=== PATIENT | female | born 1945 ===

== ENCOUNTER 2019-08-08 18:19 | Inpatient (IN) | payer MEDICAID, OTHER ==
[~2019-08-08] VITALS: Ht 154.9 cm; Wt 51.7 kg
[2019-08-08] MEDS ORDERED: METF-446 PO (18:31)
[2019-08-08] MEDS ORDERED: LISI2.5T2 PO (18:31)
[2019-08-08 19:32] LABS: BASOPHILS % (AUTO) 0.4 % (0.0-2.0); EOSINOPHILS % (AUTO) 0.4 % (1.0-6.0); HEMATOCRIT 31.6 % (36-46); HEMOGLOBIN 10.3 g/dL (12.0-16.0); LYMPHOCYTES # (AUTO) 0.8 K/uL (1.0-4.8); LYMPHOCYTES % (AUTO) 6.2 % (22.0-44.0); MEAN CORPUSCULAR HEMOGLOBIN 31.7 pg (26.0-34.0); MEAN CORPUSCULAR HGB CONC 32.7 G/dL (31.0-37.0); MEAN CORPUSCULAR VOLUME 97 fL (80-100); MONOCYTES # (AUTO) 0.9 K/uL (0.1-1.0); MONOCYTES % (AUTO) 7.2 % (2.0-9.0); NEUTROPHILS # (AUTO) 10.9 K/uL (1.8-7.7); PLATELET COUNT (AUTO) 358 K/uL (150-450); RED BLOOD CELL COUNT(AUTO) 3.26 MIL/uL (4.00-5.20); RED CELL DISTRIBUTION WIDTH 12.8 % (11.5-14.5)
[2019-08-08 19:33] LABS: NEUTROPHILS % (AUTO) 85.8 % (40.0-70.0)
[2019-08-08 19:44] LABS: PROTHROMBIN TIME 10.6 SEC (9.4-11.6)
[2019-08-08] MEDS ORDERED: MORPHINE SULFATE 4 MG/ML SYRINGE IVP PRN (19:45)
[2019-08-08] MEDS ORDERED: ONDANSETRON HCL 4 MG/2 ML VIAL IVP PRN (19:45)
[2019-08-08] MEDS ORDERED: ACETAMINOPHEN 325 MG TABLET PO PRN (19:45)
[2019-08-08] MEDS ORDERED: 0.9% SODIUM CHLORIDE 10 ML SYRINGE IVP PRN (19:45)
[2019-08-08 19:47] LABS: ALBUMIN 2.7 g/dL (3.4-5.0); BILIRUBIN,TOTAL 0.3 mg/dL (0.1-1.0); CALCIUM, TOTAL 8.3 mg/dL (8.8-10.5); CREATININE 1.51 mg/dL (0.60-1.30); POTASSIUM 5.8 mmol/L (3.5-5.1); TOTAL PROTEIN, SERUM 7.1 g/dL (6.4-8.2)
[2019-08-08] MEDS ORDERED: MORPHINE SULFATE 4 MG/ML SYRINGE IVP ONE (20:00)
[2019-08-08 23:15] VITALS: BP 153/73
[2019-08-09] MEDS ORDERED: PNEUMOCOCCAL VACCINE POLYVALENT 0.5 ML VIAL [PPSV23] IM ONE (01:30)
[2019-08-09] MEDS ORDERED: INFLUENZA VIRUS VACCINE QVS 2019-20 (3YR+)/PF 60 MCG/0.5 ML SYRINGE IM ONE (01:30)
[2019-08-09] MEDS ORDERED: DEXTROSE 50%-WATER 25 GM/50 ML SYRINGE IVP PRN (04:15)
[2019-08-09] MEDS ORDERED: 0.9% SODIUM CHLORIDE 10 ML SYRINGE IVP PRN (04:15)
[2019-08-09 05:44] VITALS: BP 126/58
[2019-08-09] MEDS: ONDANSETRON HCL 4 MG/2 ML VIAL IVP PRN ×2 (05:54→20:44)
[2019-08-09] MEDS ORDERED: MORPHINE SULFATE 2 MG/ML SYRINGE IVP PRN (06:30)
[2019-08-09] MEDS: DEXTROSE 5%-0.45% SODIUM CHL 1,000 ML IV SCH ×2 (06:35→22:35)
[2019-08-09 06:51] LABS: GLUCOMETER DEV NAME(LOC) 6N.2; GLUCOSE,POINT OF CARE 274 MG/DL (70-110)
[2019-08-09 06:52] LABS: GLUCOMETER DEV NAME(LOC) 6N.2; GLUCOSE,POINT OF CARE 160 MG/DL (70-110)
[2019-08-09 08:37] VITALS: BP 129/54
[2019-08-09] MEDS: DOCUSATE SODIUM 100 MG CAPSULE PO SCH ×2 (08:45→20:44)
[2019-08-09 09:13] LABS: BASOPHILS % (AUTO) 0.2 % (0.0-2.0); EOSINOPHILS % (AUTO) 0.8 % (1.0-6.0); HEMATOCRIT 29.9 % (36-46); HEMOGLOBIN 10.1 g/dL (12.0-16.0); LYMPHOCYTES # (AUTO) 1.4 K/uL (1.0-4.8); MEAN CORPUSCULAR HEMOGLOBIN 32.4 pg (26.0-34.0); MEAN CORPUSCULAR HGB CONC 33.8 G/dL (31.0-37.0); MEAN CORPUSCULAR VOLUME 96 fL (80-100); MONOCYTES # (AUTO) 0.6 K/uL (0.1-1.0); MONOCYTES % (AUTO) 6.5 % (2.0-9.0); NEUTROPHILS # (AUTO) 7.2 K/uL (1.8-7.7); NEUTROPHILS % (AUTO) 77.5 % (40.0-70.0); PLATELET COUNT (AUTO) 368 K/uL (150-450); RED BLOOD CELL COUNT(AUTO) 3.11 MIL/uL (4.00-5.20); RED CELL DISTRIBUTION WIDTH 12.7 % (11.5-14.5)
[2019-08-09 09:32] LABS: ALBUMIN 2.4 g/dL (3.4-5.0); BILIRUBIN,TOTAL 0.3 mg/dL (0.1-1.0); CREATININE 1.04 mg/dL (0.60-1.30); POTASSIUM 4.3 mmol/L (3.5-5.1); TOTAL PROTEIN, SERUM 6.4 g/dL (6.4-8.2)
[2019-08-09 11:31] VITALS: BP 140/57
[2019-08-09 12:21] LABS: GLUCOMETER DEV NAME(LOC) 6N.2; GLUCOSE,POINT OF CARE 122 MG/DL (70-110)
[2019-08-09] MEDS ORDERED: POVIDONE-IODINE 30 GM OINTMENT TP ONE (14:08)
[2019-08-09] MEDS ORDERED: BUPIVACAINE/EPI/PF 0.5% 30 ML VIAL ONE (14:08)
[2019-08-09] MEDS ORDERED: BUPIVACAINE LIPOSOME/PF 1.3%-13.3MG/ML SUSPENSION 20 ML VIAL INJ ONE (14:15)
[2019-08-09] MEDS ORDERED: RINGERS SOLUTION,LACTATED 1,000 ML IV ONE (14:28)
[2019-08-09] MEDS ORDERED: HYDROmorphone 2 MG/ML SYRINGE IVP PRN (15:30)
[2019-08-09] MEDS ORDERED: FentaNYL CITRATE-PF 100 MCG/2 ML VIAL IVP PRN (15:30)
[2019-08-09] MEDS ORDERED: MEPERIDINE-PF 25 MG/ML VIAL IVP PRN (15:30)
[2019-08-09] MEDS ORDERED: HYDROmorphone 2 MG/ML SYRINGE ONE (17:23)
[2019-08-09] MEDS ORDERED: MEPERIDINE-PF 25 MG/ML VIAL ONE (17:23)
[2019-08-09 18:22] VITALS: BP 154/73
[2019-08-09 18:44] LABS: GLUCOMETER DEV NAME(LOC) 6N.2; GLUCOSE,POINT OF CARE 131 MG/DL (70-110)
[2019-08-09 19:54] VITALS: BP 126/69
[2019-08-09] MEDS ORDERED: OXYGEN THERAPY IH SCH (20:00)
[2019-08-09] MEDS: OXYGEN THERAPY IH SCH (20:33)
[2019-08-09] MEDS: ACETAMINOPHEN 325 MG TABLET PO PRN (20:45)
[2019-08-09] MEDS: INSULIN LISPRO 100 UNITS/ML SQ PRN (20:51)
[2019-08-09 22:42] LABS: GLUCOMETER DEV NAME(LOC) 6N.2; GLUCOSE,POINT OF CARE 153 MG/DL (70-110)
[2019-08-10 00:28] VITALS: BP 101/45
[2019-08-10 05:02] VITALS: BP 131/59
[2019-08-10] MEDS ORDERED: FentaNYL CITRATE-PF 100 MCG/2 ML VIAL IVP ONE (05:45)
[2019-08-10] MEDS ORDERED: ONDANSETRON HCL 4 MG/2 ML VIAL IVP ONE (05:45)
[2019-08-10] MEDS ORDERED: SUCCINYLCHOLINE CHLORIDE 20 MG/ML 10 ML VIAL IVP ONE (05:45)
[2019-08-10] MEDS ORDERED: PROPOFOL 1% 20 ML VIAL IVP ONE (05:45)
[2019-08-10 06:30] LABS: GLUCOMETER DEV NAME(LOC) 6N.2; GLUCOSE,POINT OF CARE 94 MG/DL (70-110)
[2019-08-10 07:17] LABS: BASOPHILS % (AUTO) 0.1 % (0.0-2.0); EOSINOPHILS % (AUTO) 1.2 % (1.0-6.0); HEMOGLOBIN 9.8 g/dL (12.0-16.0); LYMPHOCYTES # (AUTO) 1.2 K/uL (1.0-4.8); LYMPHOCYTES % (AUTO) 12.7 % (22.0-44.0); MEAN CORPUSCULAR HEMOGLOBIN 31.5 pg (26.0-34.0); MEAN CORPUSCULAR HGB CONC 32.7 G/dL (31.0-37.0); MEAN CORPUSCULAR VOLUME 96 fL (80-100); MONOCYTES # (AUTO) 0.6 K/uL (0.1-1.0); MONOCYTES % (AUTO) 6.7 % (2.0-9.0); NEUTROPHILS # (AUTO) 7.5 K/uL (1.8-7.7); NEUTROPHILS % (AUTO) 79.3 % (40.0-70.0); PLATELET COUNT (AUTO) 307 K/uL (150-450); RED BLOOD CELL COUNT(AUTO) 3.11 MIL/uL (4.00-5.20); RED CELL DISTRIBUTION WIDTH 12.5 % (11.5-14.5)
[2019-08-10 07:33] LABS: CALCIUM, TOTAL 8.3 mg/dL (8.8-10.5); CREATININE 1.1 mg/dL (0.60-1.30); POTASSIUM 4.2 mmol/L (3.5-5.1)
[2019-08-10] MEDS: ENOXAPARIN SODIUM 40 MG/0.4 ML PF SYRINGE SQ SCH (08:18)
[2019-08-10] MEDS: DOCUSATE SODIUM 100 MG CAPSULE PO SCH ×2 (08:18→20:37)
[2019-08-10] MEDS: OxyCODONE HCL/ACETAMINOPHEN 5-325 MG TABLET PO PRN ×2 (08:21→20:37)
[2019-08-10 08:42] VITALS: BP 113/50
[2019-08-10 11:14] LABS: GLUCOMETER DEV NAME(LOC) 6N.2; GLUCOSE,POINT OF CARE 304 MG/DL (70-110)
[2019-08-10] MEDS: INSULIN LISPRO 100 UNITS/ML SQ PRN ×2 (11:20→17:41)
[2019-08-10 12:47] VITALS: BP 130/60
[2019-08-10] MEDS: DEXTROSE 5%-0.45% SODIUM CHL 1,000 ML IV SCH (15:50)
[2019-08-10 16:23] VITALS: BP 91/52
[2019-08-10] MEDS: OXYGEN THERAPY IH SCH (17:44)
[2019-08-10 20:35] VITALS: BP 112/53
[2019-08-10 23:03] LABS: GLUCOMETER DEV NAME(LOC) 6N.2; GLUCOSE,POINT OF CARE 120 MG/DL (70-110)
[2019-08-10 23:03] LABS: GLUCOMETER DEV NAME(LOC) 6N.2; GLUCOSE,POINT OF CARE 200 MG/DL (70-110)
[2019-08-11 00:02] VITALS: BP 110/54
[2019-08-11 04:00] VITALS: BP 120/52
[2019-08-11] MEDS: INSULIN LISPRO 100 UNITS/ML SQ PRN ×4 (05:57→21:17)
[2019-08-11 07:42] LABS: GLUCOMETER DEV NAME(LOC) 6N.2; GLUCOSE,POINT OF CARE 171 MG/DL (70-110)
[2019-08-11] MEDS: ENOXAPARIN SODIUM 40 MG/0.4 ML PF SYRINGE SQ SCH (08:33)
[2019-08-11] MEDS: DEXTROSE 5%-0.45% SODIUM CHL 1,000 ML IV SCH (08:33)
[2019-08-11] MEDS: DOCUSATE SODIUM 100 MG CAPSULE PO SCH ×2 (08:33→21:25)
[2019-08-11] MEDS: OXYGEN THERAPY IH SCH ×2 (08:34→21:23)
[2019-08-11 08:56] VITALS: BP 124/58
[2019-08-11] MEDS: OxyCODONE HCL/ACETAMINOPHEN 5-325 MG TABLET PO PRN ×2 (10:59→15:00)
[2019-08-11 11:29] VITALS: BP 126/56
[2019-08-11 12:36] LABS: GLUCOMETER DEV NAME(LOC) 6N.2; GLUCOSE,POINT OF CARE 225 MG/DL (70-110)
[2019-08-11 15:16] LABS: GLUCOMETER DEV NAME(LOC) 6N.2; GLUCOSE,POINT OF CARE 132 MG/DL (70-110)
[2019-08-11] MEDS: ONDANSETRON HCL 4 MG/2 ML VIAL IVP PRN ×2 (15:33→21:19)
[2019-08-11 16:00] VITALS: BP 109/51
[2019-08-11 17:58] LABS: GLUCOMETER DEV NAME(LOC) 6N.2; GLUCOSE,POINT OF CARE 206 MG/DL (70-110)
[2019-08-11 20:43] VITALS: BP 125/56
[2019-08-12] VITALS (7 sets, daily range): BP systolic 100–132; BP diastolic 47–60
[2019-08-12 02:45] LABS: GLUCOMETER DEV NAME(LOC) 6N.2; GLUCOSE,POINT OF CARE 212 MG/DL (70-110)
[2019-08-12] MEDS: DEXTROSE 5%-0.45% SODIUM CHL 1,000 ML IV SCH ×3 (06:13→23:33)
[2019-08-12] MEDS: INSULIN LISPRO 100 UNITS/ML SQ PRN ×4 (06:31→20:31)
[2019-08-12 07:58] LABS: GLUCOMETER DEV NAME(LOC) 6N.2; GLUCOSE,POINT OF CARE 196 MG/DL (70-110)
[2019-08-12] MEDS: OXYGEN THERAPY IH SCH (08:33)
[2019-08-12] MEDS: DOCUSATE SODIUM 100 MG CAPSULE PO SCH ×2 (08:34→19:55)
[2019-08-12] MEDS: ENOXAPARIN SODIUM 40 MG/0.4 ML PF SYRINGE SQ SCH (08:34)
[2019-08-12 19:34] LABS: GLUCOMETER DEV NAME(LOC) 6N.2; GLUCOSE,POINT OF CARE 216 MG/DL (70-110)
[2019-08-12 19:35] LABS: GLUCOMETER DEV NAME(LOC) 6N.2; GLUCOSE,POINT OF CARE 233 MG/DL (70-110)
[2019-08-12] MEDS: OxyCODONE HCL/ACETAMINOPHEN 5-325 MG TABLET PO PRN (22:01)
[2019-08-12 22:23] LABS: APPEARANCE,URINE TURBID (CLEAR); BILIRUBIN,URINE NEGATIVE (NEGATIVE); GLUCOSE, URINE (UA) NEGATIVE (NEGATIVE); KETONES,URINE NEGATIVE (NEGATIVE); LEUKOCYTE ESTERASE ,URINE LARGE (NEGATIVE); NITRATE,URINE NEGATIVE (NEGATIVE); OCCULT BLOOD,URINE SMALL (NEGATIVE); PROTEIN,URINE TRACE (NEGATIVE); UROBILINOGEN,URINE 0.2 mg/dL (<=1.0)
[2019-08-12 22:45] LABS: BACTERIA,URINE Many /HPF (None Seen); SQUAMOUS EPITHELIAL CELL,UR Many /LPF (None Seen); WBC,URINE 51-100 /HPF (0-5)
[2019-08-12 23:32] LABS: GLUCOMETER DEV NAME(LOC) 6N.2; GLUCOSE,POINT OF CARE 193 MG/DL (70-110)
[2019-08-13 05:06] VITALS: BP 126/71
[2019-08-13] MEDS ORDERED: RINGERS SOLUTION,LACTATED 1,000 ML IV ONE (05:15)
[2019-08-13 06:17] LABS: GLUCOMETER DEV NAME(LOC) 4E.2; GLUCOSE,POINT OF CARE 226 MG/DL (70-110)
[2019-08-13] MEDS ORDERED: LIDOCAINE/PF 1% 30 ML VIAL ONE (06:42)
[2019-08-13] MEDS ORDERED: BUPIVACAINE HCL/PF 0.5% 30 ML VIAL ONE (06:42)
[2019-08-13] MEDS: OXYGEN THERAPY IH SCH ×2 (08:00→08:58)
[2019-08-13 08:17] LABS: CALCIUM, TOTAL 7.7 mg/dL (8.8-10.5); CREATININE 1.24 mg/dL (0.60-1.30); POTASSIUM 4.7 mmol/L (3.5-5.1)
[2019-08-13 08:29] LABS: BASOPHILS % (AUTO) 0.3 % (0.0-2.0); EOSINOPHILS % (AUTO) 1.4 % (1.0-6.0); HEMATOCRIT 27.3 % (36-46); HEMOGLOBIN 9.2 g/dL (12.0-16.0); LYMPHOCYTES # (AUTO) 1.5 K/uL (1.0-4.8); LYMPHOCYTES % (AUTO) 16.6 % (22.0-44.0); MEAN CORPUSCULAR HEMOGLOBIN 32.2 pg (26.0-34.0); MEAN CORPUSCULAR HGB CONC 33.6 G/dL (31.0-37.0); MEAN CORPUSCULAR VOLUME 96 fL (80-100); MONOCYTES # (AUTO) 0.6 K/uL (0.1-1.0); MONOCYTES % (AUTO) 6.3 % (2.0-9.0); NEUTROPHILS # (AUTO) 6.8 K/uL (1.8-7.7); NEUTROPHILS % (AUTO) 75.4 % (40.0-70.0); PLATELET COUNT (AUTO) 434 K/uL (150-450); RED BLOOD CELL COUNT(AUTO) 2.85 MIL/uL (4.00-5.20); RED CELL DISTRIBUTION WIDTH 12.8 % (11.5-14.5)
[2019-08-13] MEDS ORDERED: ONDANSETRON HCL 4 MG/2 ML VIAL ONE (08:30)
[2019-08-13] MEDS: ONDANSETRON HCL 4 MG/2 ML VIAL IVP PRN ×2 (08:31→11:27)
[2019-08-13] MEDS: DOCUSATE SODIUM 100 MG CAPSULE PO SCH ×2 (08:57→20:21)
[2019-08-13] MEDS: ENOXAPARIN SODIUM 40 MG/0.4 ML PF SYRINGE SQ SCH (08:57)
[2019-08-13 09:01] VITALS: BP 136/64
[2019-08-13] MEDS: MetFORMIN HCL 500 MG TABLET PO SCH (09:10)
[2019-08-13 11:27] VITALS: BP 142/74
[2019-08-13] MEDS: MAGNESIUM HYDROXIDE SUSPENSION 30 ML UDCUP PO PRN (11:27)
[2019-08-13] MEDS: MULTIVITAMINS WITH MINERALS, THERAPEUTIC TABLET PO SCH (11:27)
[2019-08-13] MEDS: INSULIN LISPRO 100 UNITS/ML SQ PRN ×3 (11:29→20:29)
[2019-08-13] MEDS: CefTRIAXone 1 GM/DEXTROSE 50 ML IV SCH (11:31)
[2019-08-13] MEDS ORDERED: KETAMINE HCL 50 MG/ML 10 ML VIAL IVP ONE (12:00)
[2019-08-13] MEDS ORDERED: PROPOFOL 1% 20 ML VIAL IVP ONE (12:00)
[2019-08-13] MEDS ORDERED: FentaNYL CITRATE-PF 100 MCG/2 ML VIAL IVP ONE (12:00)
[2019-08-13] MEDS ORDERED: EPHEDrine SULFATE 50 MG/ML VIAL IM ONE (12:00)
[2019-08-13] MEDS ORDERED: 0.9% SODIUM CHLORIDE 10 ML VIAL IVP ONE (12:00)
[2019-08-13] MEDS ORDERED: SODIUM CHLORIDE 0.9% 500 ML IV ONE (12:08)
[2019-08-13 12:21] LABS: GLUCOMETER DEV NAME(LOC) 6N.2; GLUCOSE,POINT OF CARE 259 MG/DL (70-110)
[2019-08-13 15:15] VITALS: BP 133/72
[2019-08-13] MEDS: DEXTROSE 5%-0.45% SODIUM CHL 1,000 ML IV SCH (17:28)
[2019-08-13 19:48] VITALS: BP 108/50
[2019-08-13] MEDS: OxyCODONE HCL/ACETAMINOPHEN 5-325 MG TABLET PO PRN (20:21)
[2019-08-13 20:28] LABS: GLUCOMETER DEV NAME(LOC) 6N.2; GLUCOSE,POINT OF CARE 148 MG/DL (70-110)
[2019-08-13] MEDS ORDERED: BISACODYL 10 MG RECTAL RECTAL SUPPOSITORY PR PRN (22:15)
[2019-08-13 22:24] LABS: GLUCOMETER DEV NAME(LOC) 6N.2; GLUCOSE,POINT OF CARE 171 MG/DL (70-110)
[2019-08-13 23:36] VITALS: BP 110/54
[2019-08-14 04:12] VITALS: BP 120/57
[2019-08-14] MEDS: INSULIN LISPRO 100 UNITS/ML SQ PRN ×4 (05:56→21:45)
[2019-08-14 06:56] LABS: GLUCOMETER DEV NAME(LOC) 6N.2; GLUCOSE,POINT OF CARE 166 MG/DL (70-110)
[2019-08-14 08:06] VITALS: BP 131/66
[2019-08-14] MEDS: MULTIVITAMINS WITH MINERALS, THERAPEUTIC TABLET PO SCH (08:31)
[2019-08-14] MEDS: MetFORMIN HCL 500 MG TABLET PO SCH (08:31)
[2019-08-14] MEDS: ENOXAPARIN SODIUM 40 MG/0.4 ML PF SYRINGE SQ SCH (08:31)
[2019-08-14] MEDS: DOCUSATE SODIUM 100 MG CAPSULE PO SCH ×2 (08:31→21:09)
[2019-08-14 11:41] VITALS: BP 140/70
[2019-08-14] MEDS: CefTRIAXone 1 GM/DEXTROSE 50 ML IV SCH (12:36)
[2019-08-14 17:20] VITALS: BP 122/53
[2019-08-14] MEDS ORDERED: SODIUM CHLORIDE 0.9% 500 ML IV ONE (18:20)
[2019-08-14 19:59] VITALS: BP 106/56
[2019-08-14 20:04] LABS: GLUCOMETER DEV NAME(LOC) 6N.2; GLUCOSE,POINT OF CARE 226 MG/DL (70-110)
[2019-08-14 20:04] LABS: GLUCOMETER DEV NAME(LOC) 6N.2; GLUCOSE,POINT OF CARE 161 MG/DL (70-110)
[2019-08-14] MEDS: DEXTROSE 5%-0.45% SODIUM CHL 1,000 ML IV SCH (21:11)
[2019-08-14] MEDS: OxyCODONE HCL/ACETAMINOPHEN 5-325 MG TABLET PO PRN (21:12)
[2019-08-14 23:26] VITALS: BP 117/53
[2019-08-15] MEDS: ACETAMINOPHEN 325 MG TABLET PO PRN (00:08)
[2019-08-15 00:14] LABS: GLUCOMETER DEV NAME(LOC) 6N.2; GLUCOSE,POINT OF CARE 129 MG/DL (70-110)
[2019-08-15 04:23] VITALS: BP 108/53
[2019-08-15] MEDS: ONDANSETRON HCL 4 MG/2 ML VIAL IVP PRN (06:28)
[2019-08-15] MEDS: INSULIN LISPRO 100 UNITS/ML SQ PRN ×3 (06:31→21:38)
[2019-08-15 07:10] LABS: GLUCOMETER DEV NAME(LOC) 6N.2; GLUCOSE,POINT OF CARE 200 MG/DL (70-110)
[2019-08-15] MEDS: OxyCODONE HCL/ACETAMINOPHEN 5-325 MG TABLET PO PRN (08:42)
[2019-08-15] MEDS: MetFORMIN HCL 500 MG TABLET PO SCH (08:42)
[2019-08-15] MEDS: ENOXAPARIN SODIUM 40 MG/0.4 ML PF SYRINGE SQ SCH (08:42)
[2019-08-15] MEDS: DOCUSATE SODIUM 100 MG CAPSULE PO SCH ×2 (08:42→23:49)
[2019-08-15] MEDS: MULTIVITAMINS WITH MINERALS, THERAPEUTIC TABLET PO SCH (08:42)
[2019-08-15 08:50] VITALS: BP 135/58
[2019-08-15 11:29] VITALS: BP 134/59
[2019-08-15] MEDS: OXYGEN THERAPY IH SCH (12:00)
[2019-08-15 12:32] LABS: GLUCOMETER DEV NAME(LOC) 6N.2; GLUCOSE,POINT OF CARE 279 MG/DL (70-110)
[2019-08-15 12:48] LABS: BASOPHILS % (AUTO) 0.3 % (0.0-2.0); EOSINOPHILS % (AUTO) 1.4 % (1.0-6.0); HEMOGLOBIN 9.3 g/dL (12.0-16.0); LYMPHOCYTES # (AUTO) 1.5 K/uL (1.0-4.8); LYMPHOCYTES % (AUTO) 18.1 % (22.0-44.0); MEAN CORPUSCULAR HEMOGLOBIN 31.8 pg (26.0-34.0); MEAN CORPUSCULAR HGB CONC 33.1 G/dL (31.0-37.0); MEAN CORPUSCULAR VOLUME 96 fL (80-100); MONOCYTES # (AUTO) 0.5 K/uL (0.1-1.0); MONOCYTES % (AUTO) 6.1 % (2.0-9.0); NEUTROPHILS # (AUTO) 6.1 K/uL (1.8-7.7); NEUTROPHILS % (AUTO) 74.1 % (40.0-70.0); PLATELET COUNT (AUTO) 459 K/uL (150-450); RED BLOOD CELL COUNT(AUTO) 2.92 MIL/uL (4.00-5.20); RED CELL DISTRIBUTION WIDTH 12.9 % (11.5-14.5)
[2019-08-15] MEDS: CefoTEtan DISOD 1 GM/DEXTROSE 50 ML IV SCH ×2 (13:00→23:51)
[2019-08-15 13:03] LABS: CALCIUM, TOTAL 8.1 mg/dL (8.8-10.5); CREATININE 1.15 mg/dL (0.60-1.30)
[2019-08-15] MEDS: DEXTROSE 5%-0.45% SODIUM CHL 1,000 ML IV SCH (15:50)
[2019-08-15 16:07] VITALS: BP 117/55
[2019-08-15 19:20] VITALS: BP 129/57
[2019-08-15] MEDS: MAGNESIUM HYDROXIDE SUSPENSION 30 ML UDCUP PO PRN (23:49)
[2019-08-15 23:51] VITALS: BP 116/53
[2019-08-16] MEDS: OxyCODONE HCL/ACETAMINOPHEN 5-325 MG TABLET PO PRN (04:09)
[2019-08-16 04:30] VITALS: BP 142/62
[2019-08-16] MEDS: INSULIN LISPRO 100 UNITS/ML SQ PRN ×3 (06:35→21:39)
[2019-08-16 07:37] VITALS: BP 110/52
[2019-08-16] MEDS: ENOXAPARIN SODIUM 40 MG/0.4 ML PF SYRINGE SQ SCH (08:49)
[2019-08-16] MEDS: DOCUSATE SODIUM 100 MG CAPSULE PO SCH ×2 (08:49→21:00)
[2019-08-16] MEDS: MetFORMIN HCL 500 MG TABLET PO SCH (08:49)
[2019-08-16] MEDS: MULTIVITAMINS WITH MINERALS, THERAPEUTIC TABLET PO SCH (08:49)
[2019-08-16 09:42] LABS: GLUCOMETER DEV NAME(LOC) 6N.2; GLUCOSE,POINT OF CARE 260 MG/DL (70-110)
[2019-08-16 09:42] LABS: GLUCOMETER DEV NAME(LOC) 6N.2; GLUCOSE,POINT OF CARE 204 MG/DL (70-110)
[2019-08-16 11:35] VITALS: BP 120/57
[2019-08-16 12:22] LABS: GLUCOMETER DEV NAME(LOC) 6N.2; GLUCOSE,POINT OF CARE 207 MG/DL (70-110)
[2019-08-16] MEDS: CefoTEtan DISOD 1 GM/DEXTROSE 50 ML IV SCH (13:00)
[2019-08-16] MEDS: DEXTROSE 5%-0.45% SODIUM CHL 1,000 ML IV SCH ×2 (15:08→21:50)
[2019-08-16 15:51] VITALS: BP 112/52
[2019-08-16] MEDS: GlipiZIDE 5 MG TABLET PO SCH (16:53)
[2019-08-16 18:05] LABS: GLUCOMETER DEV NAME(LOC) 6N.2; GLUCOSE,POINT OF CARE 143 MG/DL (70-110)
[2019-08-16 19:47] VITALS: BP 110/49
[2019-08-16] MEDS: OXYGEN THERAPY IH SCH (20:00)
[2019-08-16 22:35] LABS: GLUCOMETER DEV NAME(LOC) 6N.2; GLUCOSE,POINT OF CARE 250 MG/DL (70-110)
[2019-08-16 23:33] VITALS: BP 103/51
[2019-08-17] VITALS (9 sets, daily range): BP systolic 79–136; BP diastolic 36–100
[2019-08-17] MEDS: CefoTEtan DISOD 1 GM/DEXTROSE 50 ML IV SCH ×2 (01:14→12:34)
[2019-08-17] MEDS: GlipiZIDE 5 MG TABLET PO SCH ×2 (06:24→17:27)
[2019-08-17] MEDS: INSULIN LISPRO 100 UNITS/ML SQ PRN ×3 (06:54→17:12)
[2019-08-17 07:25] LABS: GLUCOMETER DEV NAME(LOC) 6N.2; GLUCOSE,POINT OF CARE 219 MG/DL (70-110)
[2019-08-17] MEDS: OXYGEN THERAPY IH SCH (08:00)
[2019-08-17] MEDS: DEXTROSE 5%-0.45% SODIUM CHL 1,000 ML IV SCH (08:09)
[2019-08-17] MEDS: MULTIVITAMINS WITH MINERALS, THERAPEUTIC TABLET PO SCH (08:19)
[2019-08-17] MEDS: DOCUSATE SODIUM 100 MG CAPSULE PO SCH (08:19)
[2019-08-17] MEDS: MetFORMIN HCL 500 MG TABLET PO SCH (08:19)
[2019-08-17] MEDS: ENOXAPARIN SODIUM 40 MG/0.4 ML PF SYRINGE SQ SCH (08:19)
[2019-08-17] MEDS: OxyCODONE HCL/ACETAMINOPHEN 5-325 MG TABLET PO PRN (15:12)
[2019-08-17 15:55] LABS: GLUCOMETER DEV NAME(LOC) 6N.2; GLUCOSE,POINT OF CARE 152 MG/DL (70-110)
[2019-08-17 22:55] LABS: GLUCOMETER DEV NAME(LOC) 6N.2; GLUCOSE,POINT OF CARE 171 MG/DL (70-110)
[2019-08-17 22:55] LABS: GLUCOMETER DEV NAME(LOC) 6N.2; GLUCOSE,POINT OF CARE 162 MG/DL (70-110)
[2019-08-18] MEDS: CefoTEtan DISOD 1 GM/DEXTROSE 50 ML IV SCH ×2 (00:32→13:04)
[2019-08-18] MEDS: DOCUSATE SODIUM 100 MG CAPSULE PO SCH ×3 (00:36→20:21)
[2019-08-18] MEDS: DEXTROSE 5%-0.45% SODIUM CHL 1,000 ML IV SCH (00:38)
[2019-08-18 03:15] VITALS: BP 135/64
[2019-08-18] MEDS: INSULIN LISPRO 100 UNITS/ML SQ PRN ×3 (06:43→20:23)
[2019-08-18] MEDS: GlipiZIDE 5 MG TABLET PO SCH ×2 (06:44→17:09)
[2019-08-18 07:17] LABS: GLUCOMETER DEV NAME(LOC) 6N.2; GLUCOSE,POINT OF CARE 242 MG/DL (70-110)
[2019-08-18 07:40] VITALS: BP 132/63
[2019-08-18] MEDS: MetFORMIN HCL 500 MG TABLET PO SCH (08:03)
[2019-08-18] MEDS: MULTIVITAMINS WITH MINERALS, THERAPEUTIC TABLET PO SCH (08:03)
[2019-08-18] MEDS: ENOXAPARIN SODIUM 40 MG/0.4 ML PF SYRINGE SQ SCH (08:03)
[2019-08-18] MEDS: OXYGEN THERAPY IH SCH ×2 (08:06→20:00)
[2019-08-18 08:07] LABS: HEMATOCRIT 24.9 % (36-46); HEMOGLOBIN 8.6 g/dL (12.0-16.0); MEAN CORPUSCULAR HEMOGLOBIN 32.8 pg (26.0-34.0); MEAN CORPUSCULAR HGB CONC 34.4 G/dL (31.0-37.0); MEAN CORPUSCULAR VOLUME 95 fL (80-100); PLATELET COUNT (AUTO) 525 K/uL (150-450); RED BLOOD CELL COUNT(AUTO) 2.62 MIL/uL (4.00-5.20); RED CELL DISTRIBUTION WIDTH 12.9 % (11.5-14.5)
[2019-08-18 08:18] LABS: ALBUMIN 1.9 g/dL (3.4-5.0); BILIRUBIN,TOTAL 0.2 mg/dL (0.1-1.0); CALCIUM, TOTAL 8.3 mg/dL (8.8-10.5); CREATININE 1.3 mg/dL (0.60-1.30); POTASSIUM 4.5 mmol/L (3.5-5.1); TOTAL PROTEIN, SERUM 6.2 g/dL (6.4-8.2)
[2019-08-18 09:25] LABS: BAND NEUTROPHILS % (MANUAL) 1 % (0-5); LYMPHOCYTES % (MANUAL) 21 % (22-44); MONOCYTES % (MANUAL) 3 % (2-9); SEGMENTED NEUTROPHILS % 75 % (40-70)
[2019-08-18 11:25] VITALS: BP 128/64
[2019-08-18] MEDS: ACETAMINOPHEN 325 MG TABLET PO PRN (13:50)
[2019-08-18 14:43] LABS: GLUCOMETER DEV NAME(LOC) 6N.2; GLUCOSE,POINT OF CARE 132 MG/DL (70-110)
[2019-08-18] MEDS: MAGNESIUM HYDROXIDE SUSPENSION 30 ML UDCUP PO PRN (14:59)
[2019-08-18 15:46] VITALS: BP 109/55
[2019-08-18 19:30] VITALS: BP 103/53
[2019-08-18] MEDS: OxyCODONE HCL/ACETAMINOPHEN 5-325 MG TABLET PO PRN (20:22)
[2019-08-18 23:40] VITALS: BP 113/47
[2019-08-19] MEDS: CefoTEtan DISOD 1 GM/DEXTROSE 50 ML IV SCH ×2 (00:30→13:26)
[2019-08-19] MEDS: DEXTROSE 5%-0.45% SODIUM CHL 1,000 ML IV SCH ×2 (00:30→10:48)
[2019-08-19 03:31] LABS: GLUCOMETER DEV NAME(LOC) 6N.2; GLUCOSE,POINT OF CARE 128 MG/DL (70-110)
[2019-08-19 03:31] LABS: GLUCOMETER DEV NAME(LOC) 6N.2; GLUCOSE,POINT OF CARE 212 MG/DL (70-110)
[2019-08-19 03:40] VITALS: BP 113/51
[2019-08-19] MEDS: GlipiZIDE 5 MG TABLET PO SCH ×2 (06:26→17:04)
[2019-08-19] MEDS: INSULIN LISPRO 100 UNITS/ML SQ PRN ×3 (06:27→21:14)
[2019-08-19 07:32] VITALS: BP 123/64
[2019-08-19 07:57] LABS: GLUCOMETER DEV NAME(LOC) 6N.2; GLUCOSE,POINT OF CARE 183 MG/DL (70-110)
[2019-08-19] MEDS: MetFORMIN HCL 500 MG TABLET PO SCH (08:06)
[2019-08-19] MEDS: DOCUSATE SODIUM 100 MG CAPSULE PO SCH ×2 (08:06→21:00)
[2019-08-19] MEDS: ENOXAPARIN SODIUM 40 MG/0.4 ML PF SYRINGE SQ SCH (08:06)
[2019-08-19] MEDS: MULTIVITAMINS WITH MINERALS, THERAPEUTIC TABLET PO SCH (08:21)
[2019-08-19] MEDS: OXYGEN THERAPY IH SCH (10:48)
[2019-08-19 11:18] VITALS: BP 107/56
[2019-08-19] MEDS: OxyCODONE HCL/ACETAMINOPHEN 5-325 MG TABLET PO PRN (11:36)
[2019-08-19 12:41] LABS: GLUCOMETER DEV NAME(LOC) 6N.2; GLUCOSE,POINT OF CARE 263 MG/DL (70-110)
[2019-08-19 15:00] VITALS: BP 102/51
[2019-08-19 17:24] LABS: GLUCOMETER DEV NAME(LOC) 6N.2; GLUCOSE,POINT OF CARE 197 MG/DL (70-110)
[2019-08-19 20:06] VITALS: BP 103/47
[2019-08-19 21:34] LABS: GLUCOMETER DEV NAME(LOC) 6N.2; GLUCOSE,POINT OF CARE 173 MG/DL (70-110)
[2019-08-19 23:53] VITALS: BP 95/51
[2019-08-20] MEDS: CefoTEtan DISOD 1 GM/DEXTROSE 50 ML IV SCH (01:09)
[2019-08-20] MEDS: DEXTROSE 5%-0.45% SODIUM CHL 1,000 ML IV SCH (06:04)
[2019-08-20] MEDS: GlipiZIDE 5 MG TABLET PO SCH (06:07)
[2019-08-20] MEDS: INSULIN LISPRO 100 UNITS/ML SQ PRN (06:14)
[2019-08-20 07:05] LABS: GLUCOMETER DEV NAME(LOC) 6N.2; GLUCOSE,POINT OF CARE 184 MG/DL (70-110)
[2019-08-20 07:47] LABS: BASOPHILS % (AUTO) 0.3 % (0.0-2.0); EOSINOPHILS % (AUTO) 1.5 % (1.0-6.0); HEMATOCRIT 24.7 % (36-46); HEMOGLOBIN 8.5 g/dL (12.0-16.0); LYMPHOCYTES # (AUTO) 2.4 K/uL (1.0-4.8); LYMPHOCYTES % (AUTO) 25.9 % (22.0-44.0); MEAN CORPUSCULAR HEMOGLOBIN 32.9 pg (26.0-34.0); MEAN CORPUSCULAR HGB CONC 34.6 G/dL (31.0-37.0); MEAN CORPUSCULAR VOLUME 95 fL (80-100); MONOCYTES # (AUTO) 0.6 K/uL (0.1-1.0); NEUTROPHILS # (AUTO) 6.1 K/uL (1.8-7.7); NEUTROPHILS % (AUTO) 65.3 % (40.0-70.0); PLATELET COUNT (AUTO) 523 K/uL (150-450); RED CELL DISTRIBUTION WIDTH 13.5 % (11.5-14.5)
[2019-08-20] MEDS: MetFORMIN HCL 500 MG TABLET PO SCH (08:01)
[2019-08-20] MEDS: DOCUSATE SODIUM 100 MG CAPSULE PO SCH (08:01)
[2019-08-20] MEDS: ENOXAPARIN SODIUM 40 MG/0.4 ML PF SYRINGE SQ SCH (08:01)
[2019-08-20] MEDS: MULTIVITAMINS WITH MINERALS, THERAPEUTIC TABLET PO SCH (08:01)
[2019-08-20 08:14] LABS: CALCIUM, TOTAL 8.1 mg/dL (8.8-10.5); CREATININE 1.37 mg/dL (0.60-1.30); POTASSIUM 4.3 mmol/L (3.5-5.1)
[2019-08-20 08:49] VITALS: BP 126/62
[2019-08-20] MEDS: OxyCODONE HCL/ACETAMINOPHEN 5-325 MG TABLET PO PRN (09:17)
[2019-08-20 11:25] VITALS: BP 136/56
[2019-08-20 16:12] VITALS: BP 96/57
== END 2019-08-20 11:40 | DRG 308 ==
LOC: EMS 18:22 → 6N 20:30
PROVIDERS: ADMIT Internal Medicine; ATTEND Internal Medicine
PROC: 0JBQ0ZZ Excision of Right Foot Subcutaneous Tissue and Fascia, Open Approach (ICD-10-PCS; principal; 2019-08-08)
PROC: 0QH734Z Insertion of Internal Fixation Device into Left Upper Femur, Percutaneous Approach (ICD-10-PCS; 2019-08-10)
DX: M84.459A Pathological fracture, hip, unspecified, initial encounter for fracture (principal); E44.0 Moderate protein-calorie malnutrition; E11.22 Type 2 diabetes mellitus with diabetic chronic kidney disease; E11.40 Type 2 diabetes mellitus with diabetic neuropathy, unspecified; E11.621 Type 2 diabetes mellitus with foot ulcer; L97.819 Non-pressure chronic ulcer of other part of right lower leg with unspecified severity; E11.65 Type 2 diabetes mellitus with hyperglycemia; N39.0 Urinary tract infection, site not specified; N18.3 Chronic kidney disease, stage 3 (moderate); E87.5 Hyperkalemia; D64.9 Anemia, unspecified; D72.829 Elevated white blood cell count, unspecified; B96.89 Other specified bacterial agents as the cause of diseases classified elsewhere; I12.9 Hypertensive chronic kidney disease with stage 1 through stage 4 chronic kidney disease, or unspecified chronic kidney disease; K59.00 Constipation, unspecified; W01.0XXA Fall on same level from slipping, tripping and stumbling without subsequent striking against object, initial encounter; Y93.01 Activity, walking, marching and hiking; Z89.411 Acquired absence of right great toe; Z68.21 Body mass index [BMI] 21.0-21.9, adult; Z28.21 Immunization not carried out because of patient refusal
CPT/HCPCS: 70450; 72125; 73503; 85007; 86850; 86900; 86901; 87070; 87081; 87086; 87205; 88304; 97110; 97162; 97166; 97530; 97535; C9290; J0330; J0690; J0696; J1170; J1650; J2175; J2270; J2405; J2704; J3010; J3490; J7040; J7120